=== PATIENT | male | born 1985 | race American Indian/Alaskan Native ===

== ENCOUNTER 2017-01-21 07:04 | Emergency (ER) | payer SELFPAY ==
[2017-01-21 07:18] VITALS: BP 127/69
[2017-01-21] MEDS ORDERED: BOOSTRIX IM ONE (07:29)
[2017-01-21] MEDS ORDERED: MOTRIN PO ONE (07:30)
--- NOTE | 2017-01-21 07:36 | Emergency Department Report ---
ED Extremity Problem HPI - General Chief complaint: Extremity Injury, Lower Stated complaint: L FOOT/L SMALL TOE PAIN Time Seen by Provider: 01/21/17 07:20 Source: patient Mode of arrival: Ambulatory Limitations: No Limitations - History of Present Illness Initial comments: PT c/o L foot pain x 2 days. PT states 1 week ago he noticed a spot between his L 4th and 5th toes that he thought was skin. PT states that he tried scrubbing the skin off but no improvement. PT states yesterday he tried topical antibiotic and antifungal cream but today his pain was worse. 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 PT also states that he is unsure if his current foot pain is related to stepping on a nail 1 month ago. PT states he was at someone's house and walking around with shoes on, when he stepped on a nail. PT states his TD vaccine was last given in 2007. PT states that he did not seek medical treatment at the time of injury. MD Complaint: extremity pain Onset/Timin -: Gradual Location: left, lower extremity History of Same: No Severity scale (0 -10): 10 Quality: constant Consistency: constant Improves with: nothing Worsens with: weight bearing, walking, other (driving fork lift ) Associated Symptoms: denies: fever - Related Data Previous Rx's Medication Instructions Recorded Last Taken Type Acetaminophen/Codeine [Tylenol #3] 1 tab PO Q6H PRN #12 tab 01/21/17 Unknown Rx Cephalexin [Keflex] 500 mg PO Q6HR #40 capsule 01/21/17 Unknown Rx Ibuprofen [Motrin] 600 mg PO Q8H PRN #15 tablet 01/21/17 Unknown Rx Sulfamethoxazole/Trimethoprim 1 each PO BID #20 tablet 01/21/17 Unknown Rx [Bactrim DS TAB] Allergies Allergy/AdvReac Type Severity Reaction Status Date / Time No Known Drug Allergies Allergy Unknown Verified 04/16/16 10:44 ED Review of Systems ROS: Stated complaint: L FOOT/L SMALL TOE PAIN Other details as noted in HPI Comment: All other systems reviewed and negative Constitutional: denies: chills, fever Gastrointestinal: denies: abdominal pain, nausea, vomiting Musculoskeletal: as per HPI Skin: other (puncture wound to L foot ) ED Past Medical Hx - Past Medical History Previous Medical History?: No - Surgical History Past Surgical History?: No - Social History Smoking Status: Current Every Day Smoker Substance Use Type: Alcohol, Marijuana - Medications Home Medications: Home Medications Medication Instructions Recorded Confirmed Last Taken Type Acetaminophen/Codeine [Tylenol #3] 1 tab PO Q6H PRN #12 tab 01/21/17 Unknown Rx Cephalexin [Keflex] 500 mg PO Q6HR #40 capsule 01/21/17 Unknown Rx Ibuprofen [Motrin] 600 mg PO Q8H PRN #15 tablet 01/21/17 Unknown Rx Sulfamethoxazole/Trimethoprim 1 each PO BID #20 tablet 01/21/17 Unknown Rx [Bactrim DS TAB] ED Physical Exam - General Limitations: No Limitations General appearance: alert, in no apparent distress - Head Head exam: Present: atraumatic, normocephalic, normal inspection - Eye Eye exam: Present: normal appearance. Absent: nystagmus - ENT ENT exam: Present: normal exam, normal external ear exam - Neck Neck exam: Present: normal inspection, full ROM - Respiratory Respiratory exam: Present: normal lung sounds bilaterally. Absent: respiratory distress - Cardiovascular Cardiovascular Exam: Present: regular rate, normal rhythm - GI/Abdominal GI/Abdominal exam: Present: soft. Absent: distended, tenderness - Extremities Exam Extremities exam: Present: normal capillary refill - Expanded Lower Extremity Exam Left Ankle exam: Present: normal inspection, full ROM. Absent: tenderness Foot/Toe exam: Present: full ROM, tenderness, swelling (to dorsal aspect of the L foot ), erythema (to dorsal aspect of L foot ), puncture wound (black spot to plantar surface - no surrounding tenderness, erythema, or edema ). Absent: normal inspection, tenderness at base of 5th metatarsal, nail avulsion Neuro vascular tendon exam: Present: no vascular compromise. Absent: abnormal cap refill - Back Exam Back exam: Present: normal inspection, full ROM. Absent: tenderness - Neurological Exam Neurological exam: Present: alert, oriented X3, normal gait - Psychiatric Psychiatric exam: Present: normal affect, normal mood - Skin Skin exam: Present: warm, dry, erythema ED Course Vital Signs 01/21/17 07:14 Temperature 98.1 F Pulse Rate 69 Blood Pressure 127/69 O2 Sat by Pulse 99 Oximetry - Reevaluation(s) Reevaluation #1: 01/21/17 09:39 PT aware of XR results and plan of care. given pt's hx, I do not feel this is related to puncture wound, more likely infected tinea pedis. - Pulse Oximetry Interpretation Digit-Finger Initial Pulse Oximetry Readin Actions Taken: none ED Medical Decision Making - Radiology Data Radiology results: report reviewed XR L foot- NAP - Differential Diagnosis puncture wound, fb, cellulitis, tinea Critical Care Time: No Critical care attestation.: If time is entered above; I have spent that time in minutes in the direct care of this critically ill patient, excluding procedure time. ED Disposition Clinical Impression: Cellulitis of left foot, Tinea pedis of left foot Puncture wound of left foot Qualifiers: Encounter type: initial encounter Qualified Code(s): S91.332A - Puncture wound without foreign body, left foot, initial encounter Disposition: DISCHARGED TO HOME OR SELFCARE Is pt being admited?: No Does the pt Need Aspirin: No Condition: Stable Instructions: Puncture Wound (ED), Tinea Pedis (ED), Cellulitis (ED) Additional Instructions: continue using topical antifungal cream between toes Return to ED if worsening or concerns No driving or ETOH if you are needing to take Tylenol #3 to control your pain Prescriptions: Acetaminophen/Codeine [Tylenol #3] 1 tab PO Q6H PRN #12 tab PRN Reason: Pain , Severe (7-10) Cephalexin [Keflex] 500 mg PO Q6HR #40 capsule Ibuprofen [Motrin] 600 mg PO Q8H PRN #15 tablet PRN Reason: Pain Sulfamethoxazole/Trimethoprim [Bactrim DS TAB] 1 each PO BID #20 tablet Referrals: PRIMARY MD TIFFANIE [Primary Care Provider] - 3-5 Days DELMI MACKEY MD [Staff Physician] - 3-5 Days [facility] [Outside] - 3-5 Days [facility] [Outside] - 3-5 Days Forms: Work/School Release Form(ED) Time of Disposition: 09:44
--- NOTE | 2017-01-21 09:18 | XRay Report ---
LEFT FOOT, 3 views: History: Foot pain, stepped on nail one month ago. The bony architecture is intact. Bony alignment is normal. No soft tissue abnormalities are seen. The joint spaces appear preserved. IMPRESSION: Left foot within normal limits.
== END 2017-01-21 09:49 | disposition home or self-care (01) ==
LOC: ED 07:04
DX: S91.332A Puncture wound without foreign body, left foot, initial encounter (principal); L03.116 Cellulitis of left lower limb; B35.3 Tinea pedis; F17.200 Nicotine dependence, unspecified, uncomplicated; F12.90 Cannabis use, unspecified, uncomplicated; W22.8XXA Striking against or struck by other objects, initial encounter; Y93.89 Activity, other specified; Y99.9 Unspecified external cause status; Y92.89 Other specified places as the place of occurrence of the external cause
CPT/HCPCS: 90471; 90715

== ENCOUNTER 2021-01-07 11:44 | Emergency (ER) | payer SELFPAY ==
[2021-01-07 12:54] VITALS: BP 136/80
--- NOTE | 2021-01-07 13:56 | Emergency Department Report ---
ED Lower Extremity HPI - General Chief Complaint: Extremity Injury, Lower Stated Complaint: LT BIG TOE INJURY Time Seen by Provider: 01/07/21 13:49 Source: patient Mode of arrival: Ambulatory Limitations: No Limitations - History of Present Illness Initial Comments: 35-year-old -[place] Citizen male presents to the emergency room stating that he is stumped his left great toe 10 days ago and feels that it is not healing. Patient reports pain is around the toenail area. He has not taken anything for pain. Patient denies any past medical history currently takes no medications on a daily basis. Complaint: foot injury Onset/Timin -: days(s) Injury: Toes: Left (Great toe) Type of Injury: blunt Place: home Severity: moderate Improves With: nothing Worsens With: weight bearing, palpation (Around the toenail) Context: direct blow Associated Symptoms: ambulatory. denies: swelling, numbness, tingling Treatments Prior to Arrival: other (Nothing) - Related Data Previous Rx's Medication Instructions Recorded Last Taken Type Ibuprofen [Motrin] 600 mg PO Q8H PRN #15 tablet 01/21/17 Unknown Rx Sulfamethoxazole/Trimethoprim 1 each PO BID #20 tablet 01/21/17 Unknown Rx [Bactrim DS TAB] Acetaminophen/Codeine [Tylenol 1 tab PO Q6H PRN #12 tab 02/23/20 Unknown Rx /Codeine # 3 tab] Ibuprofen [Motrin 800 MG tab] 800 mg PO Q8HR PRN #20 tablet 01/07/21 Unknown Rx cephALEXin [Keflex] 500 mg PO Q6HR #40 capsule 01/07/21 Unknown Rx Allergies Allergy/AdvReac Type Severity Reaction Status Date / Time No Known Drug Allergies Allergy Unknown Verified 04/16/16 10:44 ED Review of Systems ROS: Stated complaint: LT BIG TOE INJURY Other details as noted in HPI Comment: All other systems reviewed and negative ED Past Medical Hx - Past Medical History Previous Medical History?: No - Social History Smoking Status: Current Every Day Smoker Substance Use Type: Alcohol, Marijuana - Medications Home Medications: Home Medications Medication Instructions Recorded Confirmed Last Taken Type Ibuprofen [Motrin] 600 mg PO Q8H PRN #15 tablet 01/21/17 Unknown Rx Sulfamethoxazole/Trimethoprim 1 each PO BID #20 tablet 01/21/17 Unknown Rx [Bactrim DS TAB] Acetaminophen/Codeine [Tylenol 1 tab PO Q6H PRN #12 tab 02/23/20 Unknown Rx /Codeine # 3 tab] Ibuprofen [Motrin 800 MG tab] 800 mg PO Q8HR PRN #20 tablet 01/07/21 Unknown Rx cephALEXin [Keflex] 500 mg PO Q6HR #40 capsule 01/07/21 Unknown Rx ED Physical Exam - General Limitations: No Limitations General appearance: alert, in no apparent distress - Head Head exam: Present: atraumatic, normocephalic - Eye Eye exam: Present: normal appearance - ENT ENT exam: Present: normal external ear exam - Neck Neck exam: Present: normal inspection, full ROM - Respiratory Respiratory exam: Absent: accessory muscle use - Cardiovascular Cardiovascular Exam: Present: regular rate - Expanded Lower Extremity Exam Left Upper Leg exam: Present: normal inspection Knee exam: Present: normal inspection Lower Leg exam: Present: normal inspection Ankle exam: Present: normal inspection Foot/Toe exam: Present: full ROM, tenderness (Around the toenail). Absent: swelling, abrasion, laceration, ecchymosis, deformity, erythema, amputation Neuro vascular tendon exam: Present: no vascular compromise Gait: Positive: observed and normal - Back Exam Back exam: Present: normal inspection - Neurological Exam Neurological exam: Present: alert, oriented X3, normal gait - Psychiatric Psychiatric exam: Present: normal affect, normal mood - Skin Skin exam: Present: warm, dry, intact, normal color. Absent: rash ED Course Vital Signs 01/07/21 12:51 Temperature 98.2 F Pulse Rate 85 Respiratory 18 Rate Blood Pressure 136/80 [Right] O2 Sat by Pulse 98 Oximetry ED Lower Extremity MDM - Medical Decision Making 35-year-old -[place] Citizen male presents to the emergency room stating that he is stumped his left great toe 10 days ago and feels that it is not healing. Patient reports pain is around the toenail area. He has not taken anything for pain. Patient denies any past medical history currently takes no medications on a daily basis. I recommend taking Tylenol or ibuprofen for pain. Keflex for possible infection under the toenail as I do see a little bit of serosanguineous crusting around the cuticle. Critical care attestation.: If time is entered above; I have spent that time in minutes in the direct care of this critically ill patient, excluding procedure time. ED Disposition Clinical Impression: Injury of left great toe Qualifiers: Encounter type: initial encounter Qualified Code(s): S99.922A - Unspecified injury of left foot, initial encounter Disposition: TO HOME OR SELFCARE Is pt being admited?: No Does the pt Need Aspirin: No Condition: Stable Additional Instructions: Complete antibiotics as prescribed pain medication as needed. Continue to soak in warm Epson salt water. Prescriptions: cephALEXin [Keflex] 500 mg PO Q6HR #40 capsule Ibuprofen [Motrin 800 MG tab] 800 mg PO Q8HR PRN #20 tablet PRN Reason: PAIN Referrals: PRIMARY CARE, [Primary Care Provider] - 3-5 Days [facility] [Provider Group] - 3-5 Days Forms: Work/School Release Form(ED) Time of Disposition: 13:57
== END 2021-01-07 14:43 | disposition home or self-care (01) ==
LOC: ED 11:44
DX: S99.922A Unspecified injury of left foot, initial encounter (principal); F17.200 Nicotine dependence, unspecified, uncomplicated; F12.90 Cannabis use, unspecified, uncomplicated; Z79.899 Other long term (current) drug therapy; X58.XXXA Exposure to other specified factors, initial encounter; Y93.89 Activity, other specified; Y92.89 Other specified places as the place of occurrence of the external cause; Y99.8 Other external cause status
CPT/HCPCS: 99281

== ENCOUNTER 2021-03-21 02:27 | Emergency (ER) | payer BC ==
[2021-03-21 04:14] VITALS: BP 116/72
== END 2021-03-21 02:38 | disposition home or self-care (01) ==
LOC: ED 02:27
DX: M54.6 Pain in thoracic spine (principal); Z53.21 Procedure and treatment not carried out due to patient leaving prior to being seen by health care provider

== ENCOUNTER 2021-07-29 16:11 | Emergency (ER) | payer BC ==
[2021-07-29] MEDS ORDERED: IBUPROFEN 800 MG TAB PO STA (16:48)
[2021-07-29] MEDS ORDERED: oxyCODONE /ACETAMINOPHEN 5-325MG TAB PO ONE (16:48)
--- NOTE | 2021-07-29 16:49 | Emergency Department Report ---
ED General Adult HPI - General Chief complaint: Rectal Pain Stated complaint: HEMMORROIDS Time Seen by Provider: 07/29/21 16:30 Source: patient Mode of arrival: Ambulatory Limitations: No Limitations - History of Present Illness Initial comments: 36-year-old -[place] male patient presents with complaints of rectal pain x2 weeks. He states a history of external hemorrhoids and that he believes they have flared up. Patient admits to straining with defecation. He denies any hematochezia/blood when he wipes, abdominal pain, fever/chills/sweats, loss of bowel control, or urinary symptoms. No testicular pain/swelling or penile discharge/pain. He also denies any other past medical history. Patient states he has been using rectal suppositories without improvement in his symptoms. He rates his current pain as a 9/10 in severity. Severity scale (0 -10): 10 - Related Data Previous Rx's Medication Instructions Recorded Last Taken Type Ibuprofen [Motrin] 600 mg PO Q8H PRN #15 tablet 01/21/17 Unknown Rx Sulfamethoxazole/Trimethoprim 1 each PO BID #20 tablet 01/21/17 Unknown Rx [Bactrim DS TAB] Acetaminophen/Codeine [Tylenol 1 tab PO Q6H PRN #12 tab 02/23/20 Unknown Rx /Codeine # 3 tab] Ibuprofen [Motrin 800 MG tab] 800 mg PO Q8HR PRN #20 tablet 01/07/21 Unknown Rx cephALEXin [Keflex] 500 mg PO Q6HR #40 capsule 01/07/21 Unknown Rx Acetaminophen/Codeine [Tylenol 1 tab PO Q8H PRN #8 tab 07/29/21 Unknown Rx /Codeine # 3 tab] Clindamycin [Clindamycin CAP] 300 mg PO Q6H 7 Days #28 capsule 07/29/21 Unknown Rx Hydrocortisone [Anucort-HC SUPPOS] 25 mg RC BID PRN 7 Days #14 07/29/21 Unknown Rx supp.rect Allergies Allergy/AdvReac Type Severity Reaction Status Date / Time No Known Drug Allergies Allergy Unknown Verified 07/29/21 16:14 ED Review of Systems ROS: Stated complaint: HEMMORROIDS Other details as noted in HPI Constitutional: denies: chills, diaphoresis, fever, malaise, weakness Cardiovascular: denies: chest pain Gastrointestinal: denies: abdominal pain, nausea, vomiting Genitourinary: denies: urgency, dysuria, frequency, hematuria, discharge, testicular pain, testicular mass Musculoskeletal: denies: back pain Skin: denies: rash, lesions, change in color Neurological: denies: headache ED Past Medical Hx - Past Medical History Previous Medical History?: No - Surgical History Past Surgical History?: No - Social History Smoking Status: Current Every Day Smoker Substance Use Type: None - Medications Home Medications: Home Medications Medication Instructions Recorded Confirmed Last Taken Type Ibuprofen [Motrin] 600 mg PO Q8H PRN #15 tablet 01/21/17 Unknown Rx Sulfamethoxazole/Trimethoprim 1 each PO BID #20 tablet 01/21/17 Unknown Rx [Bactrim DS TAB] Acetaminophen/Codeine [Tylenol 1 tab PO Q6H PRN #12 tab 02/23/20 Unknown Rx /Codeine # 3 tab] Ibuprofen [Motrin 800 MG tab] 800 mg PO Q8HR PRN #20 tablet 01/07/21 Unknown Rx cephALEXin [Keflex] 500 mg PO Q6HR #40 capsule 01/07/21 Unknown Rx Acetaminophen/Codeine [Tylenol 1 tab PO Q8H PRN #8 tab 07/29/21 Unknown Rx /Codeine # 3 tab] Clindamycin [Clindamycin CAP] 300 mg PO Q6H 7 Days #28 capsule 07/29/21 Unknown Rx Hydrocortisone [Anucort-HC SUPPOS] 25 mg RC BID PRN 7 Days #14 07/29/21 Unknown Rx supp.rect ED Physical Exam - General Limitations: No Limitations General appearance: alert, in no apparent distress - Head Head exam: Present: atraumatic, normocephalic - Eye Eye exam: Present: normal appearance. Absent: scleral icterus - Expanded ENT Exam Expanded Mouth exam: Present: tongue normal - Respiratory Respiratory exam: Absent: respiratory distress - Cardiovascular Cardiovascular Exam: Present: regular rate - GI/Abdominal GI/Abdominal exam: Present: soft. Absent: tenderness - Rectal Rectal exam: Present: normal rectal tone, hemorrhoids (Nonswollen nontender external hemorrhoid noted at 6 PM; no definite internal hemorrhoids palpated with digital rectal exam), other (Significant tenderness to palpation of the prostate noted without obvious swelling; no bright red blood noted; mild approximately 1 cm tender induration noted to outside vein). Absent: mass - exam: Present: normal inspection - Extremities Exam Extremities exam: Present: full ROM - Back Exam Back exam: Present: full ROM - Neurological Exam Neurological exam: Present: alert, oriented X3 - Psychiatric Psychiatric exam: Present: normal affect, normal mood - Skin Skin exam: Present: warm, dry, intact, normal color. Absent: rash ED Course Vital Signs 07/29/21 07/29/21 07/29/21 16:15 17:23 17:24 Temperature 98.5 F Pulse Rate 78 Respiratory 20 16 16 Rate Blood Pressure 128/78 [Right] O2 Sat by Pulse 98 Oximetry ED Medical Decision Making - Lab Data Lab Results 07/29/21 Range/Units Unknown Urine Color Yellow (Yellow) Urine Turbidity Clear (Clear) Urine pH 5.0 (5.0-7.0) Ur Specific [place] 1.019 (1.003-1.030) Urine Protein <15 mg/dl (Negative) mg/dL Urine Glucose (UA) Neg (Negative) mg/dL Urine Ketones Neg (Negative) mg/dL Urine Blood Neg (Negative) Urine Nitrite Neg (Negative) Urine Bilirubin Neg (Negative) Urine Urobilinogen < 2.0 (<2.0) mg/dL Ur Leukocyte Esterase Neg (Negative) Urine WBC (Auto) 1.0 (0.0-6.0) /HPF Urine RBC (Auto) 3.0 (0.0-6.0) /HPF U Epithel Cells (Auto) < 1.0 (0-13.0) /HPF - Medical Decision Making 36-year-old -[place] male patient presents with complaints of rectal pain x2 weeks. He states a history of external hemorrhoids and that he believes they have flared up. Patient admits to straining with defecation. He denies any hematochezia/blood when he wipes, abdominal pain, fever/chills/sweats, loss of bowel control, or urinary symptoms. No testicular pain/swelling or penile discharge/pain. He also denies any other past medical history. Patient states he has been using rectal suppositories without improvement in his symptoms. He rates his current pain as a 9/10 in severity. No inflamed hemorrhoids noted on exam. Mild 1 cm indurated area palpated on outer anus without overlying erythema or swelling noted. UA is negative. Patient admits to anal sex. We will treat for possible internal hemorrhoid, however will also cover for possible developing perianal abscess. Patient is otherwise well-appearing, his vitals are within normal limits, he is stable for discharge home. Patient to follow-up with PCP in 3 to 5 days also recommend follow-up with GI specialist,, referral provided. Strict return precautions were discussed in detail patient verbalizes understanding Critical care attestation.: If time is entered above; I have spent that time in minutes in the direct care of this critically ill patient, excluding procedure time. ED Disposition Clinical Impression: Rectal pain Disposition: HOME / SELF CARE / HOMELESS Is pt being admited?: No Condition: Stable Instructions: Hemorrhoids, [id number], How to Take a Sitz Bath Prescriptions: Hydrocortisone [Anucort-HC SUPPOS] 25 mg RC BID PRN 7 Days #14 supp.rect PRN Reason: rectal pain Clindamycin [Clindamycin CAP] 300 mg PO Q6H 7 Days #28 capsule Acetaminophen/Codeine [Tylenol /Codeine # 3 tab] 1 tab PO Q8H PRN #8 tab PRN Reason: Pain , Severe (7-10) Referrals: PRIMARY CARE, [Primary Care Provider] - 3-[address] [facility] [Provider Group] - 3-5 Days Forms: Work/School Release Form(ED)
[2021-07-29 19:02] LABS: Bilirubin,Urine NEG (Negative); Blood,Urine NEG (Negative); Color,Urine Yellow (Yellow); Protein,Urine <15 mg/dL mg/dL (Negative); Urobilinogen,Urine < 2.0 mg/dL (<2.0)
[2021-07-29 19:34] VITALS: BP 140/78
== END 2021-07-29 19:34 | disposition home or self-care (01) ==
LOC: ED 16:11
DX: K62.89 Other specified diseases of anus and rectum (principal); F17.200 Nicotine dependence, unspecified, uncomplicated; Z79.899 Other long term (current) drug therapy
CPT/HCPCS: 81001; 99283

== ENCOUNTER 2022-05-05 19:53 | Emergency (ER) | payer BC ==
[2022-05-05 20:02] VITALS: BP 141/70
== END 2022-05-06 00:25 | disposition left against medical advice (07) ==
LOC: ED 19:53
DX: K64.9 Unspecified hemorrhoids (principal); Z53.21 Procedure and treatment not carried out due to patient leaving prior to being seen by health care provider